=== PATIENT | male | born 1980 | race Caucasian/White ===

== ENCOUNTER 2017-01-27 18:04 | Emergency (ER) | payer OTHER ==
[~2017-01-27] VITALS: Ht 177.8 cm; Wt 123.8 kg
[~2017-01-27 18:04] MED LIST: BUDE10.2 IH; OLME1TAB23 PO
[2017-01-27 19:24] VITALS: BP 149/8
[2017-01-27] MEDS ORDERED: LIDOCAINE 1% / SOD BICARB 8.4% 20 ML VIAL. IJ ONE (19:45)
[2017-01-27] MEDS ORDERED: DIPHTH,PERTUSS(ACELL),TET TOX 0.5 ML DISP.SYRIN. VAX IM ONE (19:45)
--- NOTE | 2017-01-27 19:53 | PHYS DOC ---
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 He states that he has fallen off the back of the truck that is approximately 4.5 feet off the ground. He hasn't sure how he landed however he is complaining of right shoulder right arm pain all the way down to the hand. Patient does have a very small laceration noted to his right lateral forearm. Patient is right-hand dominant. He is complaining of lower back pain and discomfort at this time. Patient denies any loss of bowel or bladder. He has been ambulatory since the incident. He has not taken anything for pain and discomfort. Patient is unsure when his last tetanus immunization occurred. Review of Systems Review of Systems Constitutional: Denies fever or chills [] Eyes: Denies change in visual acuity, redness, or eye pain [] HENT: Denies nasal congestion or sore throat [] Respiratory: Denies cough or shortness of breath [] Cardiovascular: No additional information not addressed in HPI [] GI: Denies abdominal pain, nausea, vomiting, bloody stools or diarrhea [] : Denies dysuria or hematuria [] Musculoskeletal: Lower right back pain. Right shoulder right arm the right elbow right hand and right wrist pain Integument: Denies rash or skin lesions. Superficial laceration right forearm Neurologic: Denies headache, focal weakness or sensory changes [] Endocrine: Denies polyuria or polydipsia [] Current Medications Current Medications Current Medications Medications (Trade) Dose Ordered Sig/[facility] Start Time Stop Time Status Last Admin Dose Admin Cyclobenzaprine HCl (Flexeril) 10 mg 1X ONCE 01/27/17 20:00 01/27/17 20:01 DC Diphtheria/ Tetanus/[facility] Pertussis (Boostrix) 0.5 ml ONCE ONCE 01/27/17 19:45 01/27/17 19:46 DC Ibuprofen (Motrin) 800 mg 1X ONCE 01/27/17 20:00 01/27/17 20:01 DC Lidocaine/Sodium Bicarbonate (Buffered Lidocaine 1%) 20 ml 1X ONCE 01/27/17 19:45 01/27/17 19:48 DC Allergies Allergies Allergies Coded Allergies Type Severity Reaction Last Updated Verified Penicillins Allergy Intermediate Rash 03/18/15 Yes fentanyl Allergy Intermediate Nausea and Vomiting 03/18/15 No Physical Exam Physical Exam Constitutional: Well developed, well nourished, no acute distress, non-toxic appearance. [] HENT: Normocephalic, atraumatic, bilateral external ears normal, oropharynx moist, no oral exudates, nose normal. [] Eyes: PERRLA, EOMI, conjunctiva normal, no discharge. [] Neck: Normal range of motion, no tenderness, supple, no stridor. [] Cardiovascular:Heart rate regular rhythm, no murmur [] Lungs & Thorax: Bilateral breath sounds clear to auscultation [] Abdomen: Bowel sounds normal, soft, no tenderness, no masses, no pulsatile masses. [] Skin: Warm, dry, no erythema, no rash. Patient with a superficial laceration noted to the right lateral forearm. Patient was noted to have an abrasion on the elbow. Back: No cervical spine, thoracic spine or lumbar spine tenderness, no crepitus no deformities no step-offs noted. Patient was noted to have tenderness in the right lower back area. Extremities: Right shoulder, right humerus, right elbow, right forearm, right wrist, right hand tenderness, no cyanosis, no clubbing, ROM intact, no edema. Patient with decreased range of motion of the shoulder or elbow and wrist area. Slight swelling noted around the elbow and wrist area. No bruising or discoloration noted around the arm. Neurologic: Alert and oriented X 3, normal motor function, normal sensory function, no focal deficits noted. [] Psychologic: Affect normal, judgement normal, mood normal. [] Current Patient Data Vital Signs Vital Signs Date Time Temp Pulse Resp B/P (MAP) Pulse Ox O2 Delivery O2 Flow Rate FiO2 01/27/17 19:24 98.7 91 18 95 Room Air 98.7 EKG EKG [] Radiology/Procedures Radiology/Procedures [] Course & Med Decision Making Course & Med Decision Making Pertinent Labs and Imaging studies reviewed. (See chart for details) Patient was updated with a tetanus immunization here in the emergency department. He was also provided with a Flexeril and ibuprofen. X-rays were negative for any bony abnormalities per Dr. Foland. Patient will be discharged home with recommendations for ibuprofen for pain and discomfort. He'll also be provided with a prescription for Flexeril however he has been instructed this medication will cause drowsiness do not take any be alert and oriented. Patient was also encouraged to use ice packs on 20 minutes off 20 minutes several times a day. He was recommended to keep the Steri-Strips in place over the right forearm. He was instructed with signs and symptoms of infection: Redness, warmth , tenderness or any yellow/greenish transient may occur from the site if this should happen suddenly developed follow-up with his work comp immediately. Also recommended following up with his workup within the next 3-5 days. Signs and symptoms to return back to emergency department as been provided. All questions and concerns been answered at patient's bedside. Patient will be provided with a workup for the next 2-3 days. [] Dragon Disclaimer Dragon Disclaimer This electronic medical record was generated, in whole or in part, using a voice recognition dictation system. Departure Departure Impression: Primary Impression: Fall Additional Impression: Right arm pain Disposition: HOME, SELF-CARE Condition: STABLE Referrals: JASON SILVA MD (PCP) Patient Instructions: Elbow Injury-Brief, Fall Prevention and Home Safety, Easy -to-Read, Shoulder Pain, [id number], Wrist Pain, [id number] Additional Instructions: X-rays are negative for bony abnormalities Activity as tolerated. Ice packs on 20 minutes off 20 minutes several times a day. Elevation as much as possible. Keep the Steri-Strips in place and clean the site with soap and water gently. Watch for signs and symptoms of infection: Redness, warmth, tenderness or any yellow/greenish drainage of a come from the site if this should occur follow-up to primary care physician immediately. Ibuprofen 800 mg every 8 hours with food stop taking few develop an upset stomach. Flexeril as a muscle relaxer this medication will cause drowsiness do not take any be alert and oriented. Follow-up to primary care physician or your work comp physician in the next 3-5 days. Return back to emergency prior signs symptoms of become worse. Scripts Cyclobenzaprine Hcl (CYCLOBENZAPRINE HCL) 10 Mg Tablet 1 TAB PO TID Y for MUSCLE SPASMS, #30 TAB Prov: CHRISTIAN DIA [employer] 01/27/17 Problem Qualifiers Primary Impression: Fall Encounter type: initial encounter Qualified Codes: W19.XXXA - Unspecified fall, initial encounter CHRISTIAN DIA [employer] Jan 27, 2017 19:53
[2017-01-27] MEDS ORDERED: CYCLOBENZAPRINE 10 MG TABLET. PO ONE (20:00)
[2017-01-27] MEDS ORDERED: IBUPROFEN 800 MG TABLET. PO ONE (20:00)
[2017-01-27] MEDS ORDERED: CYCL10TA2 PO (20:34)
--- NOTE | 2017-01-28 08:25 | RAD ---
Right shoulder, right humerus, right elbow, right forearm and right hand radiographs 01/27/2017 at 2011 hours Indication: Fall from delivery truck with laceration to the elbow and forearm. Comparison: None available Technique: 3 views of the right shoulder, 2 views of the right humerus, 3 views of the right elbow, 2 views of the right forearm and 3 views of the right hand are provided. Findings: Right shoulder: No acute fracture or dislocation involving the glenohumeral and acromioclavicular joints. Bone mineralization is within normal limits. A 6 mm calcified granuloma is identified in the right upper lobe. Right humerus: No acute fracture or dislocation. Bone mineralization is within normal limits. A suspicious osseous lesion is identified. Regional soft tissues are within normal limits. Right elbow: No evidence for an elbow joint effusion. Radiocapitellar articulation is normal. The olecranon is intact. No acute fracture or dislocation. Right forearm: There is no acute fracture or dislocation. There is regional soft tissue swelling. Bone mineralization is within normal limits. No suspicious osseous lesion is identified. Right hand: There is no acute fracture or dislocation. Joint spaces are maintained. Bone mineralization is within normal limits. Regional soft tissues are within normal limits. Impression: No acute fracture or dislocation involving the right shoulder, right humerus, right elbow, right forearm and right hand.
== END 2017-01-27 20:40 | disposition home or self-care (01) ==
LOC: ER 18:04
DX: S51.811A Laceration without foreign body of right forearm, initial encounter (principal); S50.311A Abrasion of right elbow, initial encounter; M54.5 Low back pain; M25.511 Pain in right shoulder; E11.9 Type 2 diabetes mellitus without complications; E78.00 Pure hypercholesterolemia, unspecified; I10 Essential (primary) hypertension; Z88.0 Allergy status to penicillin; Z88.4 Allergy status to anesthetic agent; W17.89XA Other fall from one level to another, initial encounter; Y93.89 Activity, other specified; Y99.8 Other external cause status; Y92.89 Other specified places as the place of occurrence of the external cause
CPT/HCPCS: 73030; 73060; 73080; 73090; 73130; 90471; 90715; 99284-25